=== PATIENT | female | born 1980 | race Caucasian/White ===

== ENCOUNTER → 2017-10-26 12:41 | Outpatient (POV) | payer OTHER, SELFPAY ==
[2017-10-26 14:15] LABS: Basophils % 0.2 % (0.1-2.0); Eosinophils # 0.3 K/mm3 (0.0-0.4); Eosinophils % 3.9 % (0.1-12.0); Hemoglobin 13.2 g/dL (12.2-16.2); Lymphocytes # 1.3 K/mm3 (0.7-4.5); Lymphocytes % 20.2 K/mm3 (10-50); Mean Corpuscular Hemoglobin 28.3 pg (27.0-31.2); Mean Corpuscular Volume 83.2 fl (81-99); Mean Platelet Volume 7.6 fl (7.4-10.4); Monocytes # 0.4 K/mm3 (0.1-1.0); Monocytes % 5.4 % (1.7-9.3); Neutrophils # 4.6 K/mm3 (1.8-7.8); Neutrophils % 70.3 % (37.0-80.0); Platelet Count 400 K/mm3 (142-424); Red Blood Count 4.68 M/mm3 (4.20-5.40); Red Cell Distribution Width 14.2 % (11.5-17.5); White Blood Count 6.5 K/mm3 (4.8-10.8)
[2017-10-26 15:03] LABS: Erythrocyte Sedimentation Rate 34 mm/hr (0-20)
[2017-10-26 15:26] LABS: Alanine Aminotransferase 17 U/L (12-78); Albumin Level 3.7 gm/dL (3.4-5.0); Alkaline Phosphatase 61 U/L (46-116); Aspartate Amino Transferase 9 U/L (15-37); Bilirubin,Total 0.3 mg/dL (0.2-1.0); Blood Urea Nitrogen 6 mg/dL (7-18); C-Reactive Protein 3.1 mg/L (0.0-0.9); Carbon Dioxide 27 mmol/L (21.0-32.0); Chloride 108 mmol/L (98-107); Creatinine,Serum 0.78 mg/dL (0.55-1.02); Estimated Glomerular Filt Rate 83 ml/min (>60); Ferritin 44 ng/mL (8-388); GFR (African American) 101 ML/MIN (>60); Globulin 3.6 gm/dl (1.3-3.2); Glucose 88 mg/dL (74-106); Sodium 142 mmol/L (136-145); Total Protein,Serum 7.3 gm/dL (6.4-8.2)
[2017-10-28 09:20] LABS: Iron 63 ug/dL (27-159); UIBC 377 ug/dL (131-425)
[2017-10-30 18:25] LABS: Iron Saturation 14 % (15-55); Vitamin B12 649 pg/mL (232-1245)
[2017-10-30 18:26] LABS: Vitamin D 25 Hydroxy 31.9 ng/mL (30.0-100.0)
[2017-10-30 19:10] LABS: Saccharomyces cerevisiae, IgA <20.0 Units (0.0-24.9); Saccharomyces cerevisiae, IgG <20.0 Units (0.0-24.9)
== END ==
PROVIDERS: Visit Provider Nurse Practitioner Acute Care
DX: R19.4 Change in bowel habit (principal)
CPT/HCPCS: 36415; 80053; 82607; 82652; 82728; 83540; 83550; 85025; 85651; 86140; 86256; 86671

== ENCOUNTER → 2017-11-19 07:23 | Outpatient (CLI) | payer OTHER, SELFPAY ==
--- NOTE | 2017-11-19 07:25 | US_ITS ---
US abdomen limited HISTORY:Epigastric pain nausea abdominal pain right upper quadrant pain, fever. ORDERING PHYSICIAN: Victoriano Sena MD PATIENT AGE: 37 years Comparison: Previous ultrasound RUQ February 2013 Procedure: Sagittal, transverse and decubitus imaging of the gallbladder was performed. FINDINGS GALLBLADDER - No shadowing stones are evident.. No gallbladder wall thickening. . Multiple small polyp at gallbladder evident.. Most prominent 6 mm x 5 mm polyp, fixed to the anterior wall of gallbladder.. Also a small 3.5 mm polyp along anterior wall gallbladder. Also a tiny 2.5 mm & 2.1 mm polyp, along posterior wall. Gallbladder wall appears normal to upper normal thickness. Common duct is normal in diameter. A 2.5 mm at hilum of liver Liver: . Note 1 cm as 1.2 cm hyperechoic focus at the central portion of the liver. This anterior to the hilum of liver. With this appearance most Likely benign hemangioma Pancreas: Unremarkable Right kidney:.. Cortex well-maintained Unremarkable appearing. No hydronephrosis. 9.2 cm length Normal size IMPRESSION: 1. Gallbladder.. 3 small fixed appearing polyps along with minimal sludge gallbladder. No shadowing gallstones 2. Common duct normal diameter. 3. Liver 1 cm x 1.2 cm hyperechoic focus near hilum of liver. Suspect most likely likely benign hemangioma
[2017-11-19 09:26] LABS: Basophils % 0.1 % (0.1-2.0); Eosinophils # 0.1 K/mm3 (0.0-0.4); Eosinophils % 2.3 % (0.1-12.0); Hematocrit 38.8 % (37.0-47.0); Lymphocytes % 18.4 K/mm3 (10-50); Mean Corpuscular HGB Conc 33.4 g/dL (31.8-35.4); Mean Corpuscular Hemoglobin 27.9 pg (27.0-31.2); Mean Corpuscular Volume 83.5 fl (81-99); Mean Platelet Volume 7.9 fl (7.4-10.4); Monocytes # 0.3 K/mm3 (0.1-1.0); Monocytes % 4.7 % (1.7-9.3); Neutrophils # 4.2 K/mm3 (1.8-7.8); Neutrophils % 74.4 % (37.0-80.0); Platelet Count 150 K/mm3 (142-424); Red Blood Count 4.65 M/mm3 (4.20-5.40); Red Cell Distribution Width 14.6 % (11.5-17.5); White Blood Count 5.6 K/mm3 (4.8-10.8)
[2017-11-19 09:27] LABS: Alanine Aminotransferase 63 U/L (12-78); Albumin Level 3.2 gm/dL (3.4-5.0); Alkaline Phosphatase 40 U/L (46-116); Amylase 40 U/L (25-125); Anion Gap 10.3 mEq/L (5-15); Aspartate Amino Transferase 38 U/L (15-37); Bilirubin,Total 0.5 mg/dL (0.2-1.0); Blood Urea Nitrogen 14 mg/dL (7-18); C-Reactive Protein 7.9 mg/L (0.0-0.9); Carbon Dioxide 29 mmol/L (21.0-32.0); Chloride 106 mmol/L (98-107); Creatinine,Serum 0.86 mg/dL (0.55-1.02); Estimated Glomerular Filt Rate 74 ml/min (>60); GFR (African American) 90 ML/MIN (>60); Globulin 3.2 gm/dl (1.3-3.2); Glucose 92 mg/dL (74-106); Lipase 192 u/L (73-393); Potassium 4.3 mmoL/L (3.5-5.1); Sodium 141 mmol/L (136-145); Total Protein,Serum 6.4 gm/dL (6.4-8.2)
== END ==
PROVIDERS: Visit Provider Internal Medicine Gastroenterology
DX: R50.81 Fever presenting with conditions classified elsewhere (principal); R10.11 Right upper quadrant pain
CPT/HCPCS: 36415; 76705; 80053; 82150; 83690; 85025; 86140

== ENCOUNTER → 2018-03-01 11:23 | Outpatient (CLI) | payer OTHER, SELFPAY ==
[2018-03-01 11:50] LABS: Urine Pregnancy, HCG Qual. Negative (Negative)
[2018-03-01 12:09] LABS: Basophils % 0.3 % (0.1-2.0); Eosinophils # 0.1 K/mm3 (0.0-0.4); Eosinophils % 0.7 % (0.1-12.0); Hematocrit 40.8 % (37.0-47.0); Hemoglobin 13.7 g/dL (12.2-16.2); Lymphocytes # 1.5 K/mm3 (0.7-4.5); Mean Corpuscular HGB Conc 33.4 g/dL (31.8-35.4); Mean Corpuscular Hemoglobin 28.1 pg (27.0-31.2); Mean Platelet Volume 7.3 fl (7.4-10.4); Monocytes # 0.4 K/mm3 (0.1-1.0); Monocytes % 5.3 % (1.7-9.3); Neutrophils # 4.6 K/mm3 (1.8-7.8); Neutrophils % 70.6 % (37.0-80.0); Platelet Count 332 K/mm3 (142-424); Red Blood Count 4.86 M/mm3 (4.20-5.40); Red Cell Distribution Width 14.6 % (11.5-17.5); White Blood Count 6.5 K/mm3 (4.8-10.8)
[2018-03-01 13:16] LABS: Alanine Aminotransferase 26 U/L (12-78); Albumin Level 3.9 gm/dL (3.4-5.0); Albumin/Globulin Ratio 1.1 (1.1-1.8); Alkaline Phosphatase 41 U/L (46-116); Anion Gap 15.5 mEq/L (5-15); Aspartate Amino Transferase 13 U/L (15-37); Bilirubin,Total 0.5 mg/dL (0.2-1.0); Blood Urea Nitrogen 12 mg/dL (7-18); Calcium 9.4 mg/dL (8.5-10.1); Carbon Dioxide 23 mmol/L (21.0-32.0); Chloride 105 mmol/L (98-107); Creatinine,Serum 0.75 mg/dL (0.55-1.02); Estimated Glomerular Filt Rate 87 ml/min (>60); GFR (African American) 105 ML/MIN (>60); Globulin 3.5 gm/dl (1.3-3.2); Glucose 92 mg/dL (74-106); Potassium 4.5 mmoL/L (3.5-5.1); Sodium 139 mmol/L (136-145); Total Protein,Serum 7.4 gm/dL (6.4-8.2)
== END ==
PROVIDERS: Visit Provider Surgery
DX: K82.9 Disease of gallbladder, unspecified (principal)
CPT/HCPCS: 36415; 80053; 81025; 85025

== ENCOUNTER → 2018-06-22 19:21 | Outpatient (CLI) | payer OTHER, SELFPAY ==
[2018-06-22 19:41] LABS: T4 (Thyroxine) 11.9 ug/dl (4.7-13.3)
[2018-06-24 10:50] LABS: Thyroid Peroxidase Antibodies 15 IU/mL (0-34)
== END ==
PROVIDERS: Visit Provider Emergency Medicine
DX: R79.89 Other specified abnormal findings of blood chemistry (principal)
CPT/HCPCS: 84436; 86376

== ENCOUNTER → 2018-09-15 13:28 | Outpatient (CLI) | payer OTHER, SELFPAY ==
[2018-09-15 22:00] LABS: Thyroid Stimulating Hormone 4.18 uIU/ml (0.358-3.740)
== END ==
PROVIDERS: Physician Assistant; Visit Provider Emergency Medicine
DX: E03.9 Hypothyroidism, unspecified (principal)
CPT/HCPCS: 84443

== ENCOUNTER → 2018-12-22 13:35 | Outpatient (CLI) | payer OTHER, SELFPAY ==
[2018-12-22 14:48] LABS: Thyroid Stimulating Hormone 2.44 uIU/ml (0.358-3.740)
== END ==
PROVIDERS: Visit Provider Physician Assistant
DX: E03.9 Hypothyroidism, unspecified (principal)
CPT/HCPCS: 84443

== ENCOUNTER → 2019-10-03 13:12 | Outpatient (CLI) | payer OTHER, SELFPAY ==
[2019-10-04 16:07] LABS: Covid-19 Nasal PCR Sendout Lex NOT DETECTED
== END ==
PROVIDERS: Visit Provider Internal Medicine Adolescent Medicine
DX: Z03.818 Encounter for observation for suspected exposure to other biological agents ruled out (principal)
CPT/HCPCS: U0004

== ENCOUNTER → 2020-09-16 13:18 | Outpatient (CLI) | payer OTHER, SELFPAY | PROVIDERS: PCP Physician Assistant; Visit Provider Nurse Practitioner Family | DX: Z20.822 Contact with and (suspected) exposure to COVID-19 (principal); U07.1 COVID-19 | CPT/HCPCS: U0003 ==

== ENCOUNTER → 2021-05-10 07:46 | Outpatient (CLI) | payer OTHER, SELFPAY ==
--- NOTE | 2021-05-10 07:47 | MM_ITS ---
PROCEDURE INFORMATION: Exam: Bilateral Screening 3D Mammography Exam date and time: 05/10/2021 7:56 AM Age: 40 years old Clinical indication: Screening examination. TECHNIQUE: Imaging protocol: Bilateral Screening tomosynthesis and 2D mammography including computer-aided detection (CAD) when performed. COMPARISON: No relevant prior studies available. FINDINGS: MAMMOGRAPHY: Breast composition: The breast tissue is heterogeneously dense, which may obscure small masses. Mass: None. Architectural distortion: None. Calcifications: No suspicious calcifications. Asymmetric density: None. Skin thickening: None. Axillary adenopathy: None. IMPRESSION: No mammographic evidence of malignancy. Annual screening is recommended unless otherwise clinically indicated. ASSESSMENT: BI-RADS Category 1: Negative
== END ==
PROVIDERS: PCP Physician Assistant; Visit Provider Physician Assistant
DX: Z12.31 Encounter for screening mammogram for malignant neoplasm of breast (principal)
CPT/HCPCS: 77063; 77067

== ENCOUNTER → 2021-10-08 08:57 | Outpatient (POV) | payer OTHER, SELFPAY | PROVIDERS: Visit Provider Dermatology | DX: Z00.00 Encounter for general adult medical examination without abnormal findings (principal) ==

== ENCOUNTER → 2022-01-30 14:48 | Outpatient (CLI) | payer OTHER, SELFPAY | PROVIDERS: PCP Physician Assistant; Visit Provider Physician Assistant | DX: R10.11 Right upper quadrant pain (principal); K51.90 Ulcerative colitis, unspecified, without complications; E03.9 Hypothyroidism, unspecified; E78.5 Hyperlipidemia, unspecified | CPT/HCPCS: 80053; 80061; 82150; 82306; 83690; 84443; 85025 ==

== ENCOUNTER → 2022-02-13 07:26 | Outpatient (CLI) | payer OTHER, SELFPAY ==
--- NOTE | 2022-02-13 07:40 | MR_ITS ---
FINAL REPORT CLINICAL HISTORY: hemangioma protocol. 12ML PROHANCE GIVEN. RUQ PAIN. ABNORMAL US 11-19-17 FINDINGS: Multiplanar MR imaging of the abdomen was performed without and with contrast. There is a 15 mm T2 hyperintense lesion in the left hepatic lobe near the fissure for the falciform ligament. This shows gradual enhancement. Although a hemangioma is favored, this does not show the classic enhancement pattern to fulfill MR criteria of a hemangioma. Remaining liver is normal. Remaining solid organs are unremarkable. There has been, presumed, cholecystectomy. There is no lymphadenopathy or ascites. IMPRESSION: 15 mm left hepatic lesion favored to represent a hemangioma. Six-month MR follow-up is recommended. Reviewed, Interpreted and Dictated by Howard Chang MD Transcribed by Edelmira Guillen Authenticated and [facility]
== END ==
PROVIDERS: PCP Physician Assistant; Visit Provider Physician Assistant
DX: D18.03 Hemangioma of intra-abdominal structures (principal)
CPT/HCPCS: 74183; A9576

== ENCOUNTER → 2022-06-23 07:55 | Outpatient (CLI) | payer OTHER, SELFPAY ==
--- NOTE | 2022-06-23 07:56 | MM_ITS ---
PROCEDURE INFORMATION: Exam: MG Bilateral Screening 3D Mammography Exam date and time: 06/23/2022 7:51 AM Age: 41 years old Clinical indication: Screening mammogram TECHNIQUE: Imaging protocol: Bilateral Screening tomosynthesis and 2D mammography including computer-aided detection (CAD) when performed. COMPARISON: MG MM DIG SCREENING MAMM BI W/CAD 05/10/2021 7:56 AM FINDINGS: MAMMOGRAPHY: Breast composition: The breast is heterogeneously dense, which may obscure small masses. Mass: None. Architectural distortion: No new or suspicious architectural distortion. Calcifications: No new or suspicious calcifications are present Asymmetric density: No new or suspicious asymmetric density is present Skin thickening: None. Axillary adenopathy: None. IMPRESSION: No mammographic evidence of malignancy. Recommend annual screening mammography unless otherwise clinically indicated. ASSESSMENT: BI-RADS category 1: Negative
== END ==
PROVIDERS: PCP Physician Assistant; Visit Provider Physician Assistant
DX: Z12.31 Encounter for screening mammogram for malignant neoplasm of breast (principal)
CPT/HCPCS: 77063; 77067

== ENCOUNTER → 2022-12-09 08:52 | Outpatient (CLI) | payer OTHER, SELFPAY ==
[2022-12-09 09:59] LABS: Blood Urea Nitrogen 14 mg/dl (7-17); Estimated Glomerular Filt Rate 79 ml/min (>60); GFR (African American) 95 ML/MIN (>60)
== END ==
PROVIDERS: PCP Physician Assistant; Visit Provider Physician Assistant
DX: Z01.812 Encounter for preprocedural laboratory examination (principal); D18.03 Hemangioma of intra-abdominal structures
CPT/HCPCS: 36415; 82565; 84520

== ENCOUNTER → 2022-12-11 07:28 | Outpatient (CLI) | payer OTHER, SELFPAY ==
--- NOTE | 2022-12-11 07:34 | MR_ITS ---
FINAL REPORT CLINICAL HISTORY: liver hemangioma 11ML PROHANCE INJECTED COMPARISON: 02/13/2022 FINDINGS: Multiplanar MR imaging of the abdomen was performed without and with contrast. There is a 16 mm mass in the left lobe of the liver adjacent to the fissure for the ligamentum teres. This mass is stable in size and appearance. Increased T2 signal shows delayed contrast-enhancement, however this mass does not have the typical appearance of a hemangioma, would favor atypical hemangioma. There is no evidence of biliary ductal dilatation. The gallbladder has been surgically resected. No other mass or adenopathy is identified. No abnormal fluid collection is seen. IMPRESSION: 16 mm mass left lobe of the liver as described, does not have typical appearance of a hemangioma, but favor an atypical hemangioma over other lesions. Would suggest additional follow-up 12-month MRI with and without contrast to evaluate continued stability. Otherwise unremarkable MRI of the upper abdomen. Reviewed, Interpreted and Dictated by Delroy Pineda III, MD Transcribed by Amada Velazco Authenticated and [facility]
== END ==
PROVIDERS: PCP Physician Assistant; Visit Provider Physician Assistant
DX: D18.03 Hemangioma of intra-abdominal structures (principal)
CPT/HCPCS: 74183; A9576

== ENCOUNTER 2023-10-09 09:47 | Outpatient (CLI) | payer OTHER, SELFPAY ==
[2023-10-09 09:51] LABS: Basophils % 0.4 % (0.1-2.0); Eosinophils # 0.1 K/mm3 (0.0-0.4); Eosinophils % 1.7 % (0.1-12.0); Hematocrit 43.8 % (37.0-47.0); Hemoglobin 14.5 g/dL (12.2-16.2); Lymphocytes # 1.3 K/mm3 (0.7-4.5); Lymphocytes % 18.2 % (10-50); Mean Corpuscular HGB Conc 33.1 g/dL (31.8-35.4); Mean Corpuscular Hemoglobin 29.8 pg (27.0-31.2); Mean Corpuscular Volume 89.8 fl (81-99); Monocytes # 0.3 K/mm3 (0.1-1.0); Monocytes % 4.9 % (1.7-9.3); Neutrophils # 5.3 K/mm3 (1.8-7.8); Neutrophils % 74.8 % (37.0-80.0); Platelet Count 308 K/mm3 (142-424); Red Blood Count 4.87 M/mm3 (4.20-5.40); Red Cell Distribution Width 14.4 % (11.5-17.5); White Blood Count 7.1 K/mm3 (4.8-10.8)
[2023-10-09 10:32] LABS: Alanine Aminotransferase 22 U/L (12-78); Albumin Level 4.3 g/dl (3.5-5.0); Albumin/Globulin Ratio 1.4 (1.1-1.8); Alkaline Phosphatase 41 U/L (38-126); Anion Gap 10.2 mEq/L (5-15); Aspartate Amino Transferase 22 U/L (14-36); Bilirubin,Total 0.6 mg/dl (0.2-1.3); Blood Urea Nitrogen 13 mg/dl (7-17); Calcium 9.7 mg/dl (8.4-10.2); Carbon Dioxide 25 mmol/L (22.0-30.0); Chloride 109 mmol/L (98-107); Chol/HDL Ratio 3.8 (1-3.5); Cholesterol 272 mg/dl (140-200); Estimated Glomerular Filt Rate 91 ml/min (>60); GFR (African American) 111 ML/MIN (>60); Glucose 94 mg/dl (74-100); HDL Cholesterol 71 mg/dl (40-60); Potassium 4.2 mmoL/L (3.5-5.1); Sodium 140 mmol/L (136-145); Total Protein,Serum 7.3 g/dl (6.3-8.2); Triglycerides 137 mg/dl (30-150); VLDL Cholesterol 27 mg/dL (0-40)
[2023-10-09 10:43] LABS: Direct LDL Cholesterol 176.98 mg/dL (100-129)
[2023-10-09 10:53] LABS: Erythrocyte Sedimentation Rate 13 mm/hr (0-20)
[2023-10-09 10:54] LABS: 25-OH Vitamin D, Total 48.1 ng/mL (30-100)
[2023-10-09 11:05] LABS: Thyroid Stimulating Hormone 2.44 uIU/mL (0.465-4.68)
[2023-10-09 18:00] LABS: HIV (1&2) Antibody Rapid NONREACTIVE (NONREACTIVE)
[2023-10-10 08:18] LABS: HCV Ab Non Reactive (Non Reactive)
[2023-10-10 13:27] LABS: Anti-Cyclic Citrullinated Pept 7 units (0-19)
[2023-10-10 15:52] LABS: Anti-Centromere B Antibodies <0.2 AI (0.0-0.9); Anti-DNA (DS) Ab Qn 1 IU/mL (0-9); Anti-Jo-1 <0.2 AI (0.0-0.9); Anti-Smith Antibody <0.2 AI (0.0-0.9); Antichromatin Antibodies <0.2 AI (0.0-0.9); Antiscleroderma-70 Antibodies <0.2 AI (0.0-0.9); RA Latex Turbid. <10.0 IU/mL (<14.0); RNP Antibodies 0.5 AI (0.0-0.9); Sjogren's Anti-SS-A <0.2 AI (0.0-0.9); Sjogren's Anti-SS-B <0.2 AI (0.0-0.9)
== END 2023-10-09 23:59 | disposition home or self-care (01) ==
LOC: LAB.DROPOF 09:48
PROVIDERS: PCP Physician Assistant; Visit Provider Physician Assistant
DX: K51.90 Ulcerative colitis, unspecified, without complications (principal); E03.9 Hypothyroidism, unspecified; E78.5 Hyperlipidemia, unspecified; Z68.24 Body mass index [BMI] 24.0-24.9, adult
CPT/HCPCS: 80050; 80053; 80061; 82306; 84443; 85025; 85651; 86140; 86200; 86225; 86235; 86431

== ENCOUNTER 2023-10-19 15:28 | Outpatient (CLI) | payer OTHER, SELFPAY ==
--- NOTE | 2023-10-19 15:31 | MM_ITS ---
PROCEDURE INFORMATION: Exam: MG Bilateral Screening 3D Mammography Exam date and time: 10/19/2023 3:14 PM Age: 43 years old Clinical indication: Screening examination; Additional info: Annual screening TECHNIQUE: Imaging protocol: Bilateral Screening tomosynthesis and 2D mammography including computer-aided detection (CAD) when performed. COMPARISON: 1. MG MM DIG SCREENING MAMM BI W/CAD 06/23/2022 7:51 AM 2. MG MM DIG SCREENING MAMM BI W/CAD 05/10/2021 7:56 AM FINDINGS: MAMMOGRAPHY: Breast composition: The breasts are heterogeneously dense, which may obscure small masses. Mass: No suspicious masses. Architectural distortion: No suspicious distortion. Calcifications: No suspicious calcifications. Asymmetric density: None. Skin thickening: None. Axillary adenopathy: None. IMPRESSION: No mammographic evidence of malignancy. Annual screening is recommended unless otherwise clinically indicated. ASSESSMENT: BI-RADS Category 1: Negative.
== END 2023-10-19 23:59 | disposition home or self-care (01) ==
LOC: RAD 15:28
PROVIDERS: PCP Physician Assistant; Visit Provider Physician Assistant
DX: Z12.31 Encounter for screening mammogram for malignant neoplasm of breast (principal)
CPT/HCPCS: 77063; 77067

== ENCOUNTER 2023-10-28 15:28 | Outpatient (CLI) | payer OTHER, SELFPAY ==
--- NOTE | 2023-10-28 15:29 | MR_ITS ---
FINAL REPORT CLINICAL HISTORY: low back pain COMPARISON: None FINDINGS: Multiplanar MR imaging of the lumbar spine was performed without contrast. On the sagittal T2-weighted images, there is abnormal decreased signal in the L5-S1 disc. The vertebrae are of normal height. The vertebral alignment is normal. L1-2: There is no significant canal stenosis or neural foraminal narrowing. L2-3: There is no significant canal stenosis or neural foraminal narrowing. L3-4: A mild diffuse annular bulge is present with mild bilateral neural foraminal narrowing. L4-5: There is no significant canal stenosis or neural foraminal narrowing. L5-S1: A mild diffuse annular bulge is present with a left paracentral disc protrusion that produces mild compromise of the left lateral recess. This is best seen on image #25 of series 5. IMPRESSION: Mild degenerative change at the L3-4 and L5-S1 levels, most prominent at the L5-S1 level. Reviewed, Interpreted and Dictated by Raheel Sellers MD Transcribed by Amada Velazco Authenticated and [facility]
== END 2023-10-28 23:59 | disposition home or self-care (01) ==
LOC: RAD 15:29
PROVIDERS: PCP Physician Assistant; Visit Provider Physician Assistant
DX: M54.50 Low back pain, unspecified (principal)
CPT/HCPCS: 72148

== ENCOUNTER 2023-11-12 15:00 | Outpatient (RCR) | payer OTHER, SELFPAY ==
--- NOTE | 2023-10-15 12:10 | HMH.PTOPEV ---
PT Outpatient Evaluation Rehab PT Outpatient Evaluation Start: 10/15/23 10:56 Freq: Status: Active Protocol: Document 10/15/23 10:56 NICOLE (Rec: 10/15/23 12:10 NICOLE [id number]) E-signed By Desi Washington, PT Outpatient Therapy Subjective History Subjective History Pt is a 43 y/o female who reports onset of L sided low back pain a couple months ago. Pt denies trauma or known injury. Pt reports pain is localized to the left low back , denies distal LE symptoms or paresthesia. Pt described pain as a muscle spasm and tightness aggravated by prolonged sitting at work, prolonged walking, performing sit to stand transfers, bending and lifting. Pt denies having imaging of her low back although is scheduled to have a lumbar spine MRI on . Pt reports she was prescribed a steroid pack that she took which helped take the edge off but did not abolish pain. Pt also reports she was prescribed Flexeril she took at night but did not improve her symptoms so she no longer is taking it. Medical History: Hypothyroidism, Hyperlipidemia , Ulcerative colitis, Hepatic hemangioma New diagnosis of cancer in past 12 No months? Chief Complaint Pain Symptom Type Other Symptoms Relieved By Nothing Symptoms Aggravated By Bending/Stooping,Physical Activity,Twisting,Walking, Lifting,Sneeze/Coughing Current Functional Limitations Housework,Dressing,Recreation Activity,Walking,Stairs, Bending/Stooping Symptom Description Constant and Continuous Level of pain today (0-10) 3 Pain scale - at its best (0-10) 3 Pain scale - at its worst (0-10) 6 Lumbopelvic Eval Posture Lumbar Spine Posture Standing Position Flattened Palapation tenderness bilateral paraspinal tenderness Yes: L paraspinals with decreased extensibility noted buttock tenderness Yes Lumbar/Sacral Palpation Findings Tenderness Lumbar/Sacral Palpation Overall Comment L PSIS, glute max, piriformis, glute med/min mm 1/4 TTP Range of Motion Lumbar Spine Active Flexion Range of 50 Motion (degrees) Lumbar Spine Active Extension Range of 12 Motion (degrees) Left Lumbar Spine Lateral Flexion Active 10 Range of Motion (degrees) Right Lumbar Spine Lateral Flexion 15 Active Range of Motion (degrees) Manual Muscle Test Bilateral Knee Extension Strength Grade 5 Normal Knee Flexion Strength Grade 5 Normal Hip Flexion Strength Grade 4 Good Hip Abduction Strength Grade 4 Good Hip Adduction Strength Grade 4 Good Hip Extension Strength Grade 4 Good Ankle Dorsiflexion Strength Grade 5 Normal Altered Sensation Comment equal and intact to light touch sensation bilaterally Special Tests Hip Scouring (Quadrant) Test Negative Left Hip Rj (ANDREA) Test Negative Left Sciatic Nerve Tension Test Negative Left Unilateral Straight Leg Raise (Lasegue) Negative Left Test Oswestry Index Section 1 Pain Intensity The pain is moderate and does not vary much Section 2 Personal Care (Washing,Dresing) increase the pain, but I manage not to change my way of doing it Section 3 Lifting lifting heavy weights off the floor, but I can manage if they are Section 4 Walking I cannot walk more than one mile wihtout increasing pain Section 5 Sitting Pain prevents me from sitting for more than one hour Section 6 Standing I have some pain on standing, but it does not increase with time Section 7 Sleeping I get pain in bed, but it does not prevent me from sleeping well Section 8 Social Life My social life is normal but increases the degree of pain Section 9 Traveling I get extra pain while traveling, but it does not compel me to seek al Section 10 Changing Degreee of Pain My pain is neither getting better or worse Score and Risk Level Oswestry Sc 20 Oswestry Risk Level Moderate Disability Outpatient Therapy Assessment Impairments Problems/Impairmments Palpation Tenderness,Impaired Range of Motion,Impaired Strength,Impaired Transfers, Impaired Walking,Impaired Standing,Impaired Sitting, Impaired Lifting,Impaired Dressing,Impaired Stair Climbing,Impaired Bending, Subjective C/O Pain,Impaired Self Care/Self Management Prognosis Rehab Potential Good Clinical Impression Consistent with Diagnosis Yes Short Term Goals Number of Weeks 3 Increase Range of Motion Yes: Improve lumbar AROM flex to at least 60-70 Improve Ability to Dress Self Yes: don shoes/sock without pain to assist with dressing Decrease Subjective C/O Pain Yes: Improve pain at worst to 4/10 to improve overall QOL Improve Self Care/Self Management Yes Patient to be Ind w/ HEP Yes Long-Term Goals Number of Weeks 6 Increase Range of Motion Yes: Improve lumbar AROM flex to at least 80, ext & LF to 15 -20 Increase Strength Yes: Improve hip/core strength to 4+/5 grossly to assist with function Improve Ability to Climb Stairs Yes: 1 flight reciprocally with pain 2/10 or less to assist w work navigation Improve Oswestry Score Yes: Improve score to mild disability category to improve overall QOL Decrease Subjective C/O Pain Yes: Improve pain at worst to 2/10 or less to improve overall QOL Patient to be Ind w/ Advanced HEP Yes Outpatient Therapy Plan of Care Treatment Plan May Include Therapeutic Exercise Including Home Yes Exercise Program Manual Therapy Techniques Yes Neuromuscular Re-education Yes Therapeutic Activities to Return to Yes Previous Functional/Work Level ADL/Self Care Education Yes Mechanical Traction Yes Dry Needling Yes Thermal Modalities Yes Electrical Stimulation Yes Ultrasound/Phonophoresis Yes Iontophoresis Yes Massage Yes Eval/Re-Eval Yes Frequency Times per week 2 Duration Number of Weeks 4-6 Addendums This patient is a candidate for social No or vocational rehab? Patient/Guardian verbally acknowledges Yes understanding of treatment program and consents to further treatment? Patient/Guardian verbally acknowledges Yes understanding of diagnosis, prognosis and goals for treatment? Eval Complexity PT Charges 26673 - Low Complexity Shoulder/Elbow Eval Shoulder Objective Measurements Elbow Objective Measurements PHYSICIAN CERTIFICATION: I certify the specified therapy services for Alejandra Graves are required, authorized, and reviewed every 30 days.
--- NOTE | 2023-11-12 17:15 | HMH.RHREAS ---
Rehab Reassessment Rehab OP Re-assessment Start: 10/15/23 10:56 Freq: Status: Active Protocol: Document 11/12/23 15:18 NICOLE (Rec: 11/12/23 17:14 NICOLE [id number]) E-signed By Desi Washington, PT Oswestry Index Section 1 Pain Intensity The pain comes and goes and is very mild Section 2 Personal Care (Washing,Dresing) increase the pain, but I manage not to change my way of doing it Section 3 Lifting I can lift heavy weights without extra pain Section 4 Walking I have some pain when walking but it does not increase with distance Section 5 Sitting Pain prevents me from sitting for more than one hour Section 6 Standing I can stand as long as I want without pain Section 7 Sleeping I get no pain in bed Section 8 Social Life My social life is normal and gives me no extra pain Section 9 Traveling I get some pain when traveling , but none of my usual forms of travel m Section 10 Changing Degreee of Pain My pain is getting better Score and Risk Level Oswestry Sc 6 Oswestry Risk Level Mild Disability Rehab Re-assessment Subjective Subjective Pt reports she feels 95% improved since starting PT. Pt reports left-sided low back pain occurs less often and is less severe. Pt reports pain at worst as 3/10 on VAS mostly with prolonged sitting. Pt reports intermittent compliance with HEP. Objective Objective Notes Palpation: 1/ TTP of L PSIS Lumbar AROM: flex 70,e xt 20, LLF 12, RLF 15 LLE MMT: 4+/5 grossly (slight pain with resisted hip ER and ext) Assessment Progress Assessment Progressing as Expected Assessment Notes Pt has attended 9 PT treatment sessions consisting of aerobic exercise, lumbar mobility, core/hip strengthening, LE stretching, manual therapy, modalities and HEP with good tolerance. Pt demonstrated improved AMBROCIO score, lumbar mobility, subjective report of pain, and LE strength this date compared to the initial evaluation. Pt continues to demonstrate slight deficits in lumbar flexion AROM with report of left low-back tightness with bending and sitting. The pt met all short term goals and requested to trial independent HEP at this time. Will hold PT treatment during trial of independent HEP and resume if pain worsens or does not improve. Patient goals met ST/ LT/6 Goals Not Met p! at worst, lumbar flex AROM, stairs Revised Goals n/a Plan Plan Hold PT treatment with trial of independent HEP. Continue PT if pain returns or does not improve. Time and Billing Re-Eval Time 12 Re-Eval Billing Units 1 PHYSICIAN CERTIFICATION: I certify the specified therapy services for Alejandra Graves are required, authorized, and reviewed every 30 days.
== END 2023-11-12 23:59 | disposition home or self-care (01) ==
LOC: PT 15:00
PROVIDERS: Visit Provider Physician Assistant
DX: M54.50 Low back pain, unspecified (principal)
CPT/HCPCS: 20560; 97014; 97035; 97110; 97140; 97163; 97164; G0283

== ENCOUNTER 2023-12-17 07:47 | Outpatient (CLI) | payer OTHER, SELFPAY ==
--- NOTE | 2023-12-17 07:48 | MR_ITS ---
FINAL REPORT CLINICAL HISTORY: F/U HEMANGIOMA. COMPARISON: 12/11/2022 FINDINGS: Multiplanar MR imaging of the abdomen was performed without and with contrast. In addition, MRCP was performed, with three-dimensional images obtained and reviewed. No biliary ductal dilatation is identified. The gallbladder has been surgically resected. This mass shows evidence of late enhancement. The overall size and appearance is stable when compared to the prior exam of 2022. There is no evidence of biliary ductal dilatation. The gallbladder has an unremarkable appearance. No other mass or adenopathy is identified. No abnormal fluid collection is seen. IMPRESSION: Well-circumscribed mass again seen in the left hepatic lobe, stable in size and appearance since the prior MRI of 2022. Favor slightly atypical hemangioma. Since this mass has been stable for almost 2 years it is likely benign. MRCP was performed as well, and three-dimensional images were obtained and reviewed. There is no evidence of biliary ductal dilatation. Reviewed, Interpreted and Dictated by Delroy Pineda III, MD Transcribed by Amada Velazco Authenticated and . [facility]
[2023-12-17] MEDS: SODIUM CHLORIDE 0.9% 50ML BAG 25 ML IV (08:53)
[2023-12-17] MEDS: GADOTERIDOL INJ 20ML SYRINGE 12 ML IV (08:53)
[2023-12-17] MEDS: SODIUM CHLORIDE 0.9% 10ML SYR (RAD ONLY) 10 ML IV (08:53)
== END 2023-12-17 23:59 | disposition home or self-care (01) ==
LOC: RAD 07:47
PROVIDERS: PCP Physician Assistant; Visit Provider Physician Assistant
DX: R16.0 Hepatomegaly, not elsewhere classified (principal)
CPT/HCPCS: 74183; A9576

== ENCOUNTER 2025-01-04 08:00 | Outpatient (CLI) | payer OTHER, SELFPAY ==
[2025-01-04 08:32] LABS: Hematocrit 36.6 % (37.0-47.0); Hemoglobin 12.7 g/dL (12.2-16.2); Immature Granulocytes % 0 %; Mean Corpuscular HGB Conc 34.7 g/dL (31.8-35.4); Mean Corpuscular Hemoglobin 29.1 pg (27.0-31.2); Mean Corpuscular Volume 83.9 fl (81-99); Nucleated Red Blood Cells % 0 %; Platelet Count 305 K/mm3 (142-424); Red Blood Count 4.36 M/mm3 (4.20-5.40); Red Cell Distribution Width-SD 40.6 fL; White Blood Count 4.6 K/mm3 (4.8-10.8)
[2025-01-04 09:14] LABS: Alanine Aminotransferase 15 U/L (12-78); Albumin Level 4.3 g/dl (3.5-5.0); Albumin/Globulin Ratio 1.7 (1.1-1.8); Alkaline Phosphatase 45 U/L (38-126); Anion Gap 12.5 mEq/L (5-15); Aspartate Amino Transferase 20 U/L (14-36); Bilirubin,Total 0.6 mg/dl (0.2-1.3); Blood Urea Nitrogen 9 mg/dl (7-17); Calcium 9.7 mg/dl (8.4-10.2); Carbon Dioxide 22 mmol/L (22.0-30.0); Chloride 108 mmol/L (98-107); Cholesterol 217 mg/dl (140-200); Creatinine,Serum 0.90 mg/dl (0.52-1.04); Estimated Glomerular Filt Rate 68 ml/min (>60); GFR (African American) 82 ML/MIN (>60); Globulin 2.6 g/dL (1.3-3.2); Glucose 95 mg/dl (74-100); HDL Cholesterol 56 mg/dl (40-60); Potassium 4.5 mmoL/L (3.5-5.1); Sodium 138 mmol/L (136-145); Total Protein,Serum 6.9 g/dl (6.3-8.2); Triglycerides 159 mg/dl (30-150)
[2025-01-04 09:32] LABS: Triiodothryronine (T3) Uptake 22 % (23.5-40.5)
[2025-01-04 09:46] LABS: Thyroid Stimulating Hormone 3.71 uIU/mL (0.465-4.68)
[2025-01-04 10:28] LABS: Free Thyroxine Index 2.8 ug/dL (5.93-13.13); T4 (Thyroxine) 12.6 ug/dl (5.53-11.0)
== END 2025-01-04 23:59 | disposition home or self-care (01) ==
LOC: LAB 08:01
PROVIDERS: PCP Family Medicine; Visit Provider Family Medicine
DX: K51.90 Ulcerative colitis, unspecified, without complications (principal); E78.5 Hyperlipidemia, unspecified; E03.9 Hypothyroidism, unspecified
CPT/HCPCS: 36415; 80053; 80061; 84436; 84443; 84479; 85025